=== PATIENT | male | born 1965 | race Caucasian/White ===

== ENCOUNTER 2018-07-14 11:27 | Emergency (ER) | payer MEDICARE ==
[~2018-07-14] VITALS: Ht 172.7 cm; Wt 108.1 kg
[2018-07-14] MEDS ORDERED: MECLIZINE CHEWABLE 25 MG TAB ONE (12:08)
[2018-07-14] MEDS ORDERED: ONDANSETRON ODT 4 MG ONE (12:08)
[2018-07-14 12:11] VITALS: BP 121/74
[2018-07-14] MEDS ORDERED: MECLIZINE CHEWABLE 25 MG TAB PO ONE (12:30)
[2018-07-14] MEDS ORDERED: ONDANSETRON ODT 4 MG PO ONE (12:30)
== END 2018-07-14 13:48 ==
LOC: ED 13:39
DX: R42 Dizziness and giddiness (principal); E78.00 Pure hypercholesterolemia, unspecified; J44.9 Chronic obstructive pulmonary disease, unspecified; R11.0 Nausea
CPT/HCPCS: 70450; 93005; 99284; Q0162

== ENCOUNTER 2019-04-02 23:26 | Emergency (ER) | payer MEDICARE ==
[~2019-04-02] VITALS: Ht 172.7 cm; Wt 111.5 kg
[2019-04-03 01:31] VITALS: BP 113/60
== END 2019-04-03 01:35 | disposition home or self-care (01) ==
LOC: ED 04-03 01:00
DX: B00.2 Herpesviral gingivostomatitis and pharyngotonsillitis (principal); K13.79 Other lesions of oral mucosa; J44.9 Chronic obstructive pulmonary disease, unspecified; E78.00 Pure hypercholesterolemia, unspecified
CPT/HCPCS: 36415; 80053; 85025; 99283